=== PATIENT | male | born 1935 | race Caucasian/White ===

== ENCOUNTER 2023-03-14 09:33 | Inpatient (IN) | payer MEDICARE, BC, SELFPAY ==
[2023-03-14] VITALS (40 sets, daily range): BP systolic 108–159; BP diastolic 69–101; PULSE 76–96; RESP 14–24; TEMP 36–37.4; O2SAT 92–100; BMI 24.6
--- NOTE | 2023-03-14 | DI.RAD_ITS ---
Exam(s) XR ABDOMEN FLAT PLATE EXAM: 2D digital imaging was performed. CLINICAL HISTORY: NG tube. COMPARISON: CT CT ABDOMEN PELVIS W from 03/14/2023 TECHNIQUE: Supine views of the abdomen performed. Upper abdomen only included on this single portab le view FINDINGS: BOWEL GAS PATTERN: Continued dilatation of multiple loops of small bowel in the upper abdomen. OSSEOUS STRUCTURES: Nor advanced degenerative changes in the spine. OTHER FINDINGS: A nasogastric tube has been inserted. The tip lies above the diaphragm, in lower eso phagus IMPRESSION: 1. Dilated loops of small bowel. 2. NG tube in lower esophagus. DATA REPOSITORY: RADIATION DOSE DELIVERED:
--- NOTE | 2023-03-14 09:43 | ED.GENADUL_ITS ---
Discharge Plan Disposition Patient Disposition: Admit to [facility] Condition: Stable Discharge Details Clinical Impression: Incarcerated hernia, Small bowel obstruction Attending Provider: Violet Jin Primary Care Provider: Unknown,Unknown ED Provider: Jose Luis Louis Medical Decision Making This dictation utilizes [id number] dictation software and may contain unedited grammatical errors. 87 y/o M presents to ED today by EMS with a chief complaint of intermittent abdominal cramping with a known RLQ hernia, nausea and vomiting with PO intake, and constipation for the past 6 days. Onset and characteristics include nearly a week without bowel movement, intermittent abdominal cramping, questions bloody emesis last Wed., denies coffee-ground emesis. Patient has relevant history of many, many years ago had unsuccessful hernia repair surgery to abdominal hernia. Family and social history: states CA history in his brother and sister, doesn't specify type, denies smoking history, lives independently in what he refers to as a caleb. Pertinent exam findings / vital signs include hyperactive bowel sounds in the left lower lung torers, palpable right lower quadrant hernia without peritoneal signs abdomen, mild distention, benign cardiopulmonary status, dry mucosal membranes, vitals stable with hypertension chronic in nature. Differential / pathologies of concern include SBO, incarcerated hernia, obstipation, fecal impaction, gastritis, GI bleeding, dehydration, viral syndrome, gastroenteritis, UNLIKELY SMA/CLAY occlusion. Diagnostic studies of: -CBC, CMP, Lipase, Lactate, UA, CT ABD/Pelvis w Contrast - POCUS ABD performed by EM Attending Dr. Mchugh. Add-on of Type & Screen for surgical procedure. -CBC is unremarkable, CMP shows hemoconcentration with sodium of 146, hypokalemia of 3.1 which is likely lower with his hemoconcentration, mild anion gap at 14.9, mildly elevated BUN and creatinine at 48/1.5, elevation of bilirubin to 2.5 with mild elevation of liver enzymes unsure chronicity, mild hypermagnesemia of 2.6 -Lactate 2.6, likely in the setting of prolonged poor hydration, giving IVF. 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 Interventions of: -1L NS Bolus, 4mg IV Zofran, not in active pain at this time- no analgesics n eeded. -Surgery Consult with Dr. Jin, accepts for admit -NG tube placed ED Course: Patient resting comfortably throughout ED visit, he received IV fluids as well as ondansetron, he did not need any significant analgesics while in the department, tolerated NG tube placement well and is admitted to surgery service for his small bowel obstruction and inguinal hernia. Covid-19 PCR ordered at sundar e of admission. Findings consistent with SBO with strangulated hernia, warranting surgical admission. Disposition of Small Bowel Obstruction. Assessment/Plan: Patient presents with 6 days of constipation and has mildly distended abdomen with a known right lower quadrant hernia with strangulation, patient required no significant analgesia while in the department and was excepted for surgical admission, I counseled the patient on the need for intervention and he agreed with hospital admission. Patient verbalized understanding of the plan and return to ED criteria and engaged in shared decision making. Medical Records Medical records reviewed: Yes I reviewed the patient's medical records. Imaging Data Radiologic Study: Attestation: I personally reviewed and interpreted this imaging study as follows: Imaging: CT Scan My impression: SBO seen with transition point at known hernia, suspect incarceration. Radiologist's impression: EXAM: CT ABDOMEN PELVIS W CLINICAL HISTORY: constipation, N/V TECHNIQUE: Imaging Protocol: Axial computed tomography images with coronal and sagittal reformatted images were created and reviewed CONTRAST MATERIAL: Intravenous: Omnipaque 350 Contrast volume:100 mL Oral: No COMPARISON: No exams were available for comparison FINDINGS: ABDOMEN: Lung Bases: A large portion of the stomach is above the diaphragm and findings are suggestive of a gastric volvulus atelectasis is seen in the lung bases. Liver: Normal density. There are 2 well-circumscribed hypodensities in the liver which are most suggestive of hepatic cysts. No suspicious hepatic lesions are seen. Portal, Superior Mesenteric, and Splenic Veins: Unremarkable. Gallbladder and Biliary Tract: No radiodense calculus or dilation. Pancreas: Normal density, no abnormal calcifications or inflammatory process. Spleen: Normal. Adrenals: No masses seen. Kidneys: Normal size, contour and axis. No radiodense stones or obstructive uropathy. Simple right renal cyst. No follow-up is recommended. Abdominal Aorta: Abdominal portion non-dilated. Atherosclerosis. 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 Bowel: There is diverticulosis of the colon without definite diverticulitis. There is a large right inguinal hernia containing a loop of small bowel. The bowel within the hernia is mildly dilated with thickened rae. The small bowel proximal to the hernia is dilated with air-fluid levels consistent with obstruction. The small bowel distal to the hernia is of normal caliber. No evidence of appendicitis. No pneumatosis. Peritoneal Cavity: No ascites, collection or mesenteric inflammatory response. No free air. Lymph Nodes: Within normal limits. Bones: Within normal limits for the patient's age. Soft Tissues: Large right inguinal hernia containing small bowel and causing a small-bowel obstruction as described above.. PELVIS: Bladder: Symmetric distention, no gross wall thickening. Reproductive Organs: Unremarkable as visualized. Lymph Nodes: Within normal limits. Bones: Within normal limits for the patient's age. IMPRESSION: 1. Large right inguinal hernia containing a loop of small bowel. The small bowel has thickened rae and is dilated. There is a resulting small bowel obstruction proximal to the right inguinal hernia. 2. No free air. 3. Additional findings in the abdomen and pelvis as described above. 4. Findings were discussed with Dr. Lr in at 12:15 p.m. on 03/14/2023. Lab Data Lab results reviewed: Yes I reviewed the patient's lab results. Labs: Laboratory Tests Range/Units 03/14/23 09:35 WBC (4.4-10.8) 10^3/uL 8.28 RBC (4.36-5.78) 10^6/uL 4.78 Hgb (13.5-17.5) g/dL 13.8 Hct (40.0-50.0) % 42.1 MCV (80-95) fL 88 MCH (27.0-33.0) pg 28.9 MCHC (32.0-36.0) % 32.8 RDW (11.8-14.1) % 13.7 Plt Count (130-400) 10^3/uL 306 MPV (8.0-11.0) fL 8.7 Immature Gran % 0.7 Neutrophils % 70.9 Lymphocytes % 11.2 Monocytes % 16.2 Eosinophils % 0.5 Basophils % 0.5 Nucleated RBC % (0.0-0.3) % 0.0 Absolute Neutrophils (1.2-6.7) 10^3/uL 5.87 Absolute Lymphocytes (1.2-3.4) 10^3/uL 0.93 L Absolute Monocytes (0.1-0.8) 10^3/uL 1.34 H Absolute Eosinophils (0.0-0.7) 10^3/uL 0.04 Absolute Basophils (0.0-0.2) 10^3/uL 0.04 VBG Lactate (0.6-1.4) mmol/L 2.5 H* Sodium (136-145) mmol/L 146 H Potassium (3.5-5.1) mmol/L 3.1 L Chloride (98-107) mmol/L 107 Carbon Dioxide (21.0-32.0) mmol/L 24.1 Anion Gap (3-11) mmol/L 14.9 H BUN (7-18) mg/dL 48 H Creatinine (0.70-1.30) mg/dL 1.5 H Est GFR (CKD-EPI 2020) (mL/min/1.73m2) 45.34 Glucose (74-106) mg/dL 175 H Calcium (8.5-10.1) mg/dL 9.4 Magnesium (1.8-2.4) mg/dL 2.6 H Total Bilirubin (0.2-1.0) mg/dL 2.5 H AST (15-37) U/L 73 H ALT (16-63) U/L 68 H Alkaline Phosphatase (46-116) U/L 90 Total Protein (6.4-8.2) g/dL 7.4 Albumin (3.4-5.0) g/dL 3.7 Lipase (16-77) U/L 31 HPI General Date/Time Provider Initiated Documentation: 03/14/23 09:35 . HPI Narrative: 87 year-old male presents to ED today by EMS with a chief complaint of abdominal pain/cramping, known RLQ hernia, nausea/vomiting with PO intake, and lack of bowel movements with onset last Monday, day 6. Quality described as intermittent abdominal cramping- patient is stoic, no radiation to coffee-ground emesis, endorses possible scant bloody emesis last Monday, denies chest pain, shortness of breath, current abdominal pain, dysuria, confusion, endorses dehydration and feeling dry. Severity is described as moderate. Palliating factors include nothing specific attempted. Provoking factors include nothing specific. Events leading up to the incident/Associated Symptoms: Patient lives independently. Patient not anticoagulated. Related Data Home Medications Medication Instructions Recorded Confirmed Unknown [No Known Home Meds] 03/14/23 03/14/23 Allergies Allergy/AdvReac Type Severity Reaction Status Date / Time codeine AdvReac dry heaving Verified 03/14/23 13:39 General Stated Complaint: Nausea/Vomit/Diar ASHTYN: 3 Review of Systems All systems reviewed & are unremarkable except as noted in HPI and below PFSH All Active Problems (Updated 03/14/23 @ 13:43 by Violet Jin MD) Hiatal hernia (Chronic) Small bowel obstruction (Acute) Incarcerated hernia (Acute) Surgical History (Updated 03/14/23 @ 13:38 by Violet Jin MD) History of tooth extraction S/P inguinal hernia repair at 7 years old Social History Smoking/Tobacco Use Status: Never Smoking risk assessment performed?: Yes Alcohol Intake: former Drug use: Never Substance use type: does not use Housing: house Do you feel safe at home: Yes Do you feel safe in your relationship?: Yes Exam Narrative Exam Narrative: GENERAL APPEARANCE: Well-nourished, non-toxic, awake and alert, atraumatic, no acute distress. SKIN: Warm, pink, dry, intact, without rashes/lesions/ulcerations. HEAD: Normocephalic, atraumatic, normal hair distribution for gender/age. EYES: Pupils PERRLA, EOMs intact without nystagmus, normal conjunctiva, no exudates on lids/lashes. ENT: Nares patent, no circumoral cyanosis, no facial swelling NECK: Supple, trachea midline, painless cervical ROM. LUNGS/CHEST: Lungs CTA diffusely, bowel sounds heard in L lower lung torres, non-labored respirations, normal A/P diameter, symmetrical expansion, no chest wall deformity HEART (CV/PV): Regular rate and rhythm without murmur, no peripheral edema, no JVD. ABDOMEN: Hyperactive bowel sounds LUQ, soft, distended, no guarding, palpable RLQ hernia, no peritoneal signs/Rovsing's, negative Martinez's sign. MSK: Normal ROM, no swelling/deformity to bilateral UEs or LEs, moving all extremities without weakness, no cyanosis, spine midline without tenderness, normal curvature. NEURO: Mental Status AAOx4 - alert to person, place, time, events No facial droop, no forehead involvement. Motor: No focal weakness - strength 5/5 in bilateral UEs and LEs, proximal and distal, symmetric. Sensory: sensation intact to light touch globally. Gait normal: patient ambulated without ataxia into ED room. PSYCH: euthymic, cooperative, pleasant, appropriate speech Course Vital Signs Vital signs: Vital Signs Temperature 36.2 C L 03/14/23 09:31 Pulse 95 H 03/14/23 09:31 Respiratory Rate 20 03/14/23 09:31 Blood Pressure 150/92 H 03/14/23 09:31 Pulse Oximetry 92 03/14/23 09:31 Temperature 36.9 C 03/14/23 09:35 Temperature Source Tympanic 03/14/23 09:35 Pulse 95 H 03/14/23 09:31 Respiratory Rate 20 03/14/23 09:31 Respiratory Effort Short of Breath 03/14/23 09:34 Blood Pressure 150/92 H 03/14/23 09:31 Blood Pressure Position Supine 03/14/23 09:31 Pulse Oximetry 100 03/14/23 09:35 Oxygen Delivery Method Room Air 03/14/23 09:35 Oxygen Flow Rate 0 03/14/23 09:31
--- NOTE | 2023-03-14 09:45 | DI.CT_ITS ---
Exam(s) CT ABDOMEN PELVIS W EXAM: CT ABDOMEN PELVIS W CLINICAL HISTORY: constipation, N/V TECHNIQUE: Imaging Protocol: Axial computed tomography images with coronal and sagittal reformatted images were created and reviewed CONTRAST MATERIAL: Intravenous: Omnipaque 350 Contrast volume:100 mL Oral: No COMPARISON: No exams were available for comparison FINDINGS: ABDOMEN: Lung Bases: A large portion of the stomach is above the diaphragm and findings are suggestive of a ga stric volvulus atelectasis is seen in the lung bases. Liver: Normal density. There are 2 well-circumscribed hypodensities in the liver which are most sugge stive of hepatic cysts. No suspicious hepatic lesions are seen. Portal, Superior Mesenteric, and Splenic Veins: Unremarkable. Gallbladder and Biliary Tract: No radiodense calculus or dilation. Pancreas: Normal density, no abnormal calcifications or inflammatory process. Spleen: Normal. Adrenals: No masses seen. Kidneys: Normal size, contour and axis. No radiodense stones or obstructive uropathy. Simple right re nal cyst. No follow-up is recommended. Abdominal Aorta: Abdominal portion non-dilated. Atherosclerosis. There is significant thrombosis see n in both internal iliac arteries resulting in near complete occlusion. Bowel: There is diverticulosis of the colon without definite diverticulitis. There is a large right inguinal hernia containing a loop of small bowel. The bowel within the hernia is mildly dilated with thickened rae. The small bowel proximal to the hernia is dilated with air-fluid levels consistent with obstruction. The small bowel distal to the hernia is of normal caliber. No evidence of append icitis. No pneumatosis. Peritoneal Cavity: No ascites, collection or mesenteric inflammatory response. No free air. Lymph Nodes: Within normal limits. Bones: Within normal limits for the patient's age. Soft Tissues: Large right inguinal hernia containing small bowel and causing a small-bowel obstructio n as described above.. PELVIS: Bladder: Symmetric distention, no gross wall thickening. Reproductive Organs: Unremarkable as visualized. Lymph Nodes: Within normal limits. Bones: Within normal limits for the patient's age. IMPRESSION: 1. Large right inguinal hernia containing a loop of small bowel. The small bowel has thickened rae and is dilated. There is a resulting small bowel obstruction proximal to the right inguinal hernia. 2. No free air. 3. Additional findings in the abdomen and pelvis as described above. 4. Findings were discussed with Dr. Lr in at 12:15 p.m. on 03/14/2023. RADIATION DOSE DELIVERED: Total DLP DATA REPOSITORY: All CT scans at this facility are submitted to the National Radiology Data Registry (NRDR) Dose Index Registry (DIR) with the [employer] (ACR). RADIATION OPTIMIZATION: All CT scans at this facility use at least one of these dose optimization te chniques: automated exposure control; mA and/or kV adjustment per patient size (includes targeted exa ms where dose is matched to clinical indication); or iterative reconstruction.
--- NOTE | 2023-03-14 09:56 | ED.PROG_ITS ---
Date of service: 03/14/23 Time of Service: 09:56 Medical Decision Making This is an overall very well-appearing normothermic and not tachycardic 87-year-old male with remote right inguinal hernia repair now with 1 week of nausea vomiting constipation and intermittent obstipation with limited bedside ultrasound consistent with small bowel obstruction for which patient will undergo CT abdomen pelvis. Will obtain lactate to assess for incarcerated hernia. Will provide ondansetron for nausea. Patient was seen primarily by the advanced practitioner. Please see his separate note for complete details. 2:[address] scan confirmed ultrasound. Patient was hospitalized on the general surgery service. Dr. Junior Mchugh MD Discharge Plan Disposition Patient Disposition: Admit to [facility] Condition: Stable Discharge Details Clinical Impression: Incarcerated hernia, Small bowel obstruction Attending Provider: Violet Jin Primary Care Provider: Unknown,Unknown ED Provider: Jose Luis Louis Discharge Data Discharge Date/Time-TO BE ENTERED AT DEPARTURE: 03/14/23 14:13 POCUS Exam (ED) Limited Appendix Exam DATE OF EXAM: 03/14/23 TIME OF EXAM: 09:57 PROVIDER THAT PERFORMED THE STUDY: Junior Mchugh IS THIS A REPEAT EXAM DURING THIS ENCOUNTER: No REASON FOR EXAM: Nausea VISUALIZED STRUCTURES: Other structure: Dilated loops of small bowel PERTINENT FINDINGS/IMPRESSION: other impression: Dilated loops of small bowel consistent with SBO INCIDENTAL FINDINGS:: Dilated loops of small bowel consistent with SBO Exam complete
[2023-03-14] MEDS: Normal Saline 1,000 ML 1000 ML IV (10:02)
[2023-03-14] MEDS: Ondansetron 4 MG/2 ML VIAL IVP (10:02)
[2023-03-14 10:03] LABS: Abs Immature Grans 0.06 10^3/uL (0.0-0.06); Absolute Basophil Count 0.04 10^3/uL (0.0-0.2); Absolute Eosinophil Count 0.04 10^3/uL (0.0-0.7); Absolute Lymphocyte Count 0.93 10^3/uL (1.2-3.4); Absolute Monocyte Count 1.34 10^3/uL (0.1-0.8); Absolute Neutrophil Count 5.87 10^3/uL (1.2-6.7); Basophils % 0.5; Eosinophils % 0.5; HCT 42.1 % (40.0-50.0); HGB 13.8 g/dL (13.5-17.5); Immature Grans % 0.7; Lymphocytes % 11.2; MCH 28.9 pg (27.0-33.0); MCHC 32.8 % (32.0-36.0); MCV 88 fL (80-95); MPV 8.7 fL (8.0-11.0); Monocytes % 16.2; Neutrophils % 70.9; Platelet Count 306 10^3/uL (130-400); RBC 4.78 10^6/uL (4.36-5.78); RDW 13.7 % (11.8-14.1); WBC 8.28 10^3/uL (4.4-10.8)
[2023-03-14 10:05] LABS: Lactate 2.5 mmol/L (0.6-1.4)
[2023-03-14 10:18] LABS: Lipase 31 U/L (16-77)
[2023-03-14 10:21] LABS: ALT 68 U/L (16-63); AST 73 U/L (15-37); Albumin 3.7 g/dL (3.4-5.0); Alkaline Phosphatase 90 U/L (46-116); Anion Gap 14.9 mmol/L (3-11); BUN 48 mg/dL (7-18); Bilirubin, Total 2.5 mg/dL (0.2-1.0); CO2 24.1 mmol/L (21.0-32.0); CREATININE 1.5 mg/dL (0.70-1.30); Calcium 9.4 mg/dL (8.5-10.1); Chloride 107 mmol/L (98-107); Estimated GFR 45.34 (mL/min/1.73m2); Glucose 175 mg/dL (74-106); Magnesium 2.6 mg/dL (1.8-2.4); Potassium 3.1 mmol/L (3.5-5.1); Sodium 146 mmol/L (136-145); Total Protein 7.4 g/dL (6.4-8.2)
[2023-03-14] MEDS: Normal Saline - Diluent 50 ML VIAL IJ (11:34)
[2023-03-14] MEDS: Omnipaque 350 MG/ML 100 ML BTL IJ (11:37)
--- NOTE | 2023-03-14 13:02 | ANES.PREOP_ITS ---
General Info Date of Service Date Performed: 03/14/23 Height: 6 ft 2 in Weight: 87 kg Body Mass Index (BMI): 24.6 Surgical Procedure: Operation Date: 03/14/23 14:05 Proposed Procedure Side Surgeon p Herniorrhaphy Inguinal Violet Jin MD s Exploratory Laparotomy Violet Jin MD Meds Allergies and Home Medications Allergies Allergy/AdvReac Type Severity Reaction Status Date / Time codeine AdvReac dry heaving Verified 03/14/23 13:39 Home Medication Medication Instructions Recorded Unknown [No Known Home Meds] 03/14/23 Current Visit Medications: Current Medications Generic Name Dose Route Start Last Admin Trade Name Freq PRN Reason Stop Dose Admin IV Miscellaneous Supplies 1 each 03/14/23 12:45 Iv Access-Emergency Dept IV DIRECTED ABDIAS Iohexol 100 ml 03/14/23 11:45 03/14/23 11:37 Omnipaque 350 Mg/Ml 100 Ml Btl IJ 04/13/23 23:59 100 ml DIRECTED ABDIAS Administration Sodium Chloride 50 ml 03/14/23 11:45 03/14/23 11:34 Normal Saline - Diluent 50 Ml Vial IJ 50 ml .FOR DI USE ABDIAS Administration Sodium Chloride 0 ml 03/14/23 12:43 Normal Saline Flush 10 Ml Syr IVP PRN PRN PFSH Active Problems Active Problems: Problem Status Onset Code Small bowel obstruction K56.609 Incarcerated hernia K46.0 Surgical History Surgical History (Updated 03/14/23 @ 13:38 by Violet Jin MD) History of tooth extraction S/P inguinal hernia repair at 7 years old Tobacco Smoking/Tobacco Use Status: Never Alcohol Alcohol Intake: former Substance Use Substance use: Never Substance use type: does not use Vital Signs and Lab Results Vital Signs Most Recent Vital Signs in EMR: Most Recent Vital Signs Temp Pulse Resp BP Pulse Ox 36.9 C 95 H 16 150/92 H 100 03/14/23 09:35 03/14/23 09:31 03/14/23 11:50 03/14/23 09:31 03/14/23 09:35 Lab Results 03/14/23 09:35 03/14/23 09:35 Blood Type / Crossmatch: 2 Patient ABO/Rh Pending 03/14/23 Complete Blood Count: 2 White Blood Count 8.28 10^3/uL (4.4-10.8) 03/14/23 09:35 Red Blood Count 4.78 10^6/uL (4.36-5.78) 03/14/23 09:35 Hemoglobin 13.8 g/dL (13.5-17.5) 03/14/23 09:35 Hematocrit 42.1 % (40.0-50.0) 03/14/23 09:35 Platelet Count 306 10^3/uL (130-400) 03/14/23 09:35 Venous Blood Lactate 2.5 mmol/L (0.6-1.4) H* 03/14/23 09:35 Complete Metabolic Panel: 2 Sodium 146 mmol/L (136-145) H 03/14/23 09:35 Potassium 3.1 mmol/L (3.5-5.1) L 03/14/23 09:35 Chloride 107 mmol/L (98-107) 03/14/23 09:35 Carbon Dioxide 24.1 mmol/L (21.0-32.0) 03/14/23 09:35 BUN 48 mg/dL (7-18) H 03/14/23 09:35 Creatinine 1.5 mg/dL (0.70-1.30) H 03/14/23 09:35 Est GFR (CKD-EPI 2020) 45.34 (mL/min/1.73m2) 03/14/23 09:35 Magnesium 2.6 mg/dL (1.8-2.4) H 03/14/23 09:35 Calcium 9.4 mg/dL (8.5-10.1) 03/14/23 09:35 Albumin 3.7 g/dL (3.4-5.0) 03/14/23 09:35 Glucose 175 mg/dL (74-106) H 03/14/23 09:35 Liver Function Panel: 2 Alanine Aminotransferase (ALT/SGPT) 68 U/L (16-63) H 03/14/23 0 9:35 Aspartate Amino Transf (AST/SGOT) 73 U/L (15-37) H 03/14/23 09: 35 Coagulation Panel: 2 No Data to Display Cardiac Panel: 2 No Data to Display Arterial Blood Gas: 2 No Data to Display Venous Blood Gas: 2 No Data to Display Pancreas Panel: 2 Lipase 31 U/L (16-77) 03/14/23 09:35 Thyroid Panel: 2 No Data to Display Infectious Disease: 2 Coronavirus (COVID-19)(PCR) Pending 03/14/23 13:36 Coronavirus 2019 Source Pending 03/14/23 13:36 Blood Cultures: 2 No Data to Display Toxicology Panel: 2 No Data to Display Anesthesia Assessment and Plan Anesthesia History Personal History: No History of Anesthesia Complications Family History: No Family History of Anesthesia Complications Exercise Tolerance Exercise Tolerance: Metabolic Equivalents>4 Pertinent Negatives Pertinent Negatives: No Symptoms of GERD, No Major Cardiovascular Symptoms or Complaints and No Major Pulmonary Symptoms or Complaints Cardiac & Pulmonary Exam Cardiac Exam: Normal S1/S2 Heart Sounds Pulmonary Exam: Clear Bilateral Breath Sounds Implantable Cardiac Device Does patient have a Pacemaker or an ICD?: No Airway Exam Known Difficult Airway: No Mallampati Class: 3 Mouth Opening: Normal (> 3cm) Thyromental Distance: Greater than 3 cm Facial Hair: Full Meng Neck Range of Motion: Limited ROM Neck Circumference: Normal Teeth Condition: Edentulous ASA Classification ASA Score: ASA 3 Emergency Case?: Yes NPO Status NPO Status: NPO Clears >2 hours, Solids >8 hours Anesthesia Plan Resuscitation Status: Full Code Anesthesia Technique: General Anesthesia Airway Planned: Endotracheal Tube Pain Management: Surgeon and patient request nerve block Monitors Used: Standard Monitors, Arterial Line (Potential) and SedLine Preoperative Comments:: Patient reports he last ate at yesterday, but has been vomiting intermittently. Patient has one PIV in place and understands he may need additional lines and arterial line. Plan for TAP block and/or epidural as needed.
--- NOTE | 2023-03-14 13:30 | RT.EKG_ITS ---
APPROVED REPORT Exam: Resting ECG Reason for Exam: weakness Patient Location: E HR:85 bpm ECG Measurements Heart Rate 85 AXIS SC 162 P 36 QRSd 161 QRS -31 QT 440 T 61 QTc 524 Conclusion Sinus rhythm...normal P axis, V-rate 60- 99 Right bundle branch block...QRSd>120, terminal axis(90,270) Normal sinus rhythm at a rate of 85 with right bundle branch block and left axis deviation?bifas cicular block. Lateral ST segment depressions V4 through V6. No ST segment elevations. No T wave i nversions beyond V1 and V2. No prior for comparison. No acute injury pattern.
--- NOTE | 2023-03-14 13:34 | HPE_ITS ---
Assessment and Plan Assessment and plan (1) Incarcerated hernia: Status: Acute Assessment and plan: Mr. Schumacher is a pleasant 87-year-old gentleman who lives alone and has not gone to the doctor in a long time. He does not take any medicines. He comes into the emergency department with 6 days of not having a bowel movement. He started having nausea vomiting over the weekend. He looks dehydrated. His lips are dry. His labs showed an increased lactate which I would expect with his dehydration. Will hydrate him and recheck it. CT and exam shows a incarcerated right inguinal hernia. Discussed the findings with the patient. We reviewed the pathophysiology of an incarcerated hernia. Reviewed surgery which needs to be done emergent. I explained that I will attempt to just fix the hernia through a small right inguinal incision. If the intestine is necrotic then I will need to do an exploratory laparotomy to remove that part of the small intestine. I reviewed with him the potential for an ileostomy. I reviewed the risks, benefits and complications. After our conversation the patient did seem to have a good understanding of the possible complications of the proposed surgery and wished to proceed. Risks, benefits and complications have been reviewed. Complications include but are not limited to bleeding, infection, injury to vas, vessels and nerves, injury to bowel, recurrence (3-5%), chronic pain and adverse reaction to medications. Questions were entertained and answered to their satisfaction and they wished to proceed. I also discussed with the patient that he has a large hiatal hernia and that it might be twisted. I recommended an NG tube decompression. We discussed this and he agreed. I also discussed with the patient his CODE STATUS. Patient would like to continue to be a full code. He does not want to be on a ventilator for long period time. He does not have a designated advocate to help with decision- making if he was unable to make those decisions himself. He does not want his information to be given to anyone. We will proceed with repair of right incarcerated inguinal hernia with possible exploratory laparotomy, possible small bowel resection with anastomosis possible ileostomy. Patient will be admitted to intensive care unit after the surgery. He will stay n.p.o. until bowel function returns. DVT prophylaxis: We will start with sequential compression devices here in the OR. We will start on Lovenox tomorrow. GI prophylaxis: Will start on IV Protonix tonight Nutrition: Patient will be n.p.o. until he has some bowel function. We will continue with hydration. If bowel function does not return within a few days will consider TPN. Activity: We will get the patient out of bed and ambulating as soon as possible. Pain control: Anesthesia we will do a tap block for me in the OR. We will give Toradol and IV Tylenol. We will also order some low doses of morphine. Discharge planning: Patient lives alone and has no support system so we will need to figure out if we can get him some assistance once he is ready for discharge. 40 minutes were spent in [id number] conversation with the patient. 20 minutes spent with dictation and review of chart. (2) Small bowel obstruction: Status: Acute (3) Hiatal hernia: Status: Chronic History of Present Illness Consults Consult date: 03/14/23 Requesting physician: Jose Luis Dougherty arrative: Mr. Schumacher is a 87 year old gentleman who comes in today for nausea, vomiting and constipation. He states his last normal bowel movement was last Monday. He has had some blood per rectum but it is hard to understand from him when exactly that was. He lives alone and has not seen a physician in 6 years or more. He is on no medications. He does tell me he had an attempt at a right inguinal hernia repair when he was 7 years old. He tells me that he moves around a lot even under general anesthesia. He had labs drawn in the emergency department which were unremarkable. His lactate was elevated but the patient has also been vomiting for at least a few days. He had a CT scan done of the abdomen and pelvis. I was able to review the images. The CT scan shows a large right inguinal hernia with thickened intestine in it. There is a transition point between the small intestine in the abdomen and what is in his hernia sac. There is also a large hiatal hernia with question of volvulus. He denies chest pain, shortness of breath or palpitations. He does say diabetes runs in the family but he has never had that diagnosis. He does state that he sleeps a lot over the last few months. He will go to bed at around 8 or 9:00 wake up at midnight have a couple coffee and then go back to bed are until around noon. He will then get up and have lunch and then take another nap until dinner. He has no relatives that he is in contact with. Review of Systems Constitutional Constitutional: Reports fatigue, Denies fever(s), Denies headache(s) and Denies weight loss Eyes Eyes: Denies change in vision ENT Ears, Nose, Mouth, and Throat: Denies dysphagia and Denies headache(s) Cardiovascular Cardiovascular: Denies chest pain, Denies chest pain at rest, Denies irregular heart rhythm, Denies palpitations, Denies dyspnea and Denies dyspnea on exertion Respiratory Respiratory: Denies cough, Denies dyspnea and Denies dyspnea on exertion Gastrointestinal Gastrointestinal: Reports as per HPI, Denies dysphagia, Denies dyspepsia and Denies heartburn Genitourinary Genitourinary: Reports system reviewed and no additional complaints, except as documented Musculoskeletal Musculoskeletal: Reports system reviewed and no additional complaints, except as documented Integumentary/Breasts Skin/Breast: Reports system reviewed and no additional complaints, except as documented Neurologic Neurologic: Reports system reviewed and no additional complaints, except as documented and Denies headache(s) Endocrine Endocrine: Reports system reviewed and no additional complaints, except as documented, Reports fatigue and Denies palpitations Hematologic/Lymphatic Hematologic/Lymphatic: Reports system reviewed and no additional complaints, except as documented PFSH All Active Problems (Updated 03/14/23 @ 13:43 by Violet Jin MD) Hiatal hernia (Chronic) Small bowel obstruction (Acute) Incarcerated hernia (Acute) Surgical History (Updated 03/14/23 @ 13:38 by Violet Jin MD) History of tooth extraction S/P inguinal hernia repair at 7 years old Social History Smoking/Tobacco Use Status: Never Smoking risk assessment performed?: Yes Alcohol Intake: former Drug use: Never Substance use type: does not use Housing: house Do you feel safe at home: Yes Do you feel safe in your relationship?: Yes Meds Allergies and Home Medications Allergies Allergy/AdvReac Type Severity Reaction Status Date / Time codeine AdvReac dry heaving Verified 03/14/23 13:39 Home Medications Medication Instructions Recorded Confirmed Type Unknown [No Known Home Meds] 03/14/23 03/14/23 History Exam Const General: cooperative, comfortable and no acute distress Nutritional Appearance: thin Orientation: alert and oriented x3 HENMT Head: normocephalic and atraumatic Resp Effort & Inspection: normal respiratory effort Auscultation: clear to auscultation bilaterally Cardio Rate: regular rate Rhythm: regular rhythm Heart Sounds: no gallops, no murmurs and no rubs GI Inspection: visible herniation Palpation: soft, no hepatosplenomegaly, hernia (large right inguinal hernia) and tender (over the hernia) Auscultation: high-pitched sounds Rectal Exam: deferred Results Imaging Abdomen CT scan report/results: report reviewed and image reviewed CT scan - pelvis: report reviewed and image reviewed Labs 03/14/23 09:35 03/14/23 09:35 Labs: Laboratory Results - last 24 hr 03/14/23 09:35 WBC 8.28 RBC 4.78 Hgb 13.8 Hct 42.1 MCV 88 MCH 28.9 MCHC 32.8 RDW 13.7 Plt Count 306 MPV 8.7 Immature Gran % 0.7 Neutrophils % 70.9 Lymphocytes % 11.2 Monocytes % 16.2 Eosinophils % 0.5 Basophils % 0.5 Nucleated RBC % 0.0 Absolute Neutrophils 5.87 Absolute Lymphocytes 0.93 L Absolute Monocytes 1.34 H Absolute Eosinophils 0.04 Absolute Basophils 0.04 VBG Lactate 2.5 H* Sodium 146 H Potassium 3.1 L Chloride 107 Carbon Dioxide 24.1 Anion Gap 14.9 H BUN 48 H Creatinine 1.5 H Est GFR (CKD-EPI 2020) 45.34 Glucose 175 H Calcium 9.4 Magnesium 2.6 H Total Bilirubin 2.5 H AST 73 H ALT 68 H Alkaline Phosphatase 90 Total Protein 7.4 Albumin 3.7 Lipase 31 Last Vital Signs Temp 98.5 F 03/14/23 09:35 Pulse 95 H 03/14/23 09:31 Resp 16 03/14/23 11:50 BP 150/92 H 03/14/23 09:31 Pulse Ox 100 03/14/23 09:35
[2023-03-14 13:47] LABS: Source Nasal/Nares
[2023-03-14] MEDS: Lactated Ringers 1,000 ML 30 ML IV (14:03)
[2023-03-14 14:19] LABS: COVID-19 PCR Negative (Negative)
[2023-03-14] MEDS: AMPICILLIN/SULBACTAM 3 GM in Normal Saline 100 ML IVPB (14:37)
[2023-03-14] MEDS: Bupivacaine 0.25% Pres-Free 30 ML VIAL (14:57)
[2023-03-14 15:07] LABS: Lactate 1.2 mmol/L (0.6-1.4)
[2023-03-14] MEDS: Bupivacaine LIPOSOME/PF 133 MG/10 ML VIAL IJ (15:34)
--- NOTE | 2023-03-14 16:15 | ROE_ITS ---
Date of service: 03/14/23 Time of Service: 16:15 Operative Note Operative Note DATE OF PROCEDURE: 03/14/23 PRE-OP DIAGNOSIS: incarcerated right inguinal hernia POST-OP DIAGNOSIS: same PROCEDURE: repair of incarcerated right inguinal hernia SURGEON: Violet Jin GLASS INSTALLER TECHNICIAN: Sangeeta Zhu ANESTHESIA TYPE: Local By Surgeon and General LMA/ETT Refer to Anesthesia Record ESTIMATED BLOOD LOSS: 25 PATHOLOGY: none sent COMPLICATIONS: None Patient was transported to: PACU Patient's condition: stable Implants: Ventrio ST hernia Patch: REF- [id number] LOT- [id number] 2024-01-10 Indications: Mr. Schumacher is a pleasant 87-year-old gentleman who I saw in the emergency department for small bowel Sun secondary to a large incarcerated right inguinal hernia. Patient also has a large hiatal hernia which on CT scan there was a question whether there was a volvulus. NG tube was placed in the emergency department to decompress his stomach. I do not believe that his obstruction is secondary to gastric outlet obstruction but more because of his intestine being incarcerated. I discussed the procedure with him in detail as well as the possible risks, benefits and complications. He had an opportunity to ask questions about the possible complications and wished to proceed. Findings: Large 10 x 12 cm hernia sac. There was omentum, sigmoid colon and small intestine within the hernia sac. The large and small intestine were viable. The omentum was scarred and I had to amputate most of it in order to be able to reduce the intestine and rest of the omentum. We will infection of the umbilicus scrotum and inguinal creases. Procedure Description: After informed consent was obtained the patient was taken to the operating room and placed in a supine position. Monitors and SCDs were applied and a timeout was done. The patient's name, date of , procedure type, procedure site, allergies to medications, preoperative antibiotic, and DVT prophylaxis were all reviewed. Fire risk was assessed. Once anesthesia was done the abdomen was prepped and draped in a sterile surgical fashion. 0.5% Marcaine mixed with exparel was injected into the dermis in the right lower quadrant. An incision was made with a 10 blade in the right lower quadrant. Dissection was done with cautery through the subcutaneous tissues and Theodore's fascia down to the external oblique fascia. The external ring was not easily identified secondary to previous hernia repair at age 7 and from the large hernia sac. I slowly opened the he external oblique fascia sharply, being careful not to injure the underlying intestine. The cut fascia was grasped with hemostats. The hernia sac contents were then gently manipula delfina from the scrotum into the inguinal canal. The sac was opened and the intestine was inspected. The small and large intestine were pink. Almost the entire omentum was also found within the hernia sac. I was unable to reduce the intestine and the omentum. Most of the omentum was removed using a ligasure. The sigmoid colon and small intestine was the easily reduced back into the peritoneal cavity. The cord structures were identified and a [place] drain was placed around them. The cremasteric muscle was dissected away from the cord structures using both cautery and blunt dissection. A flat piece of mesh was then attached to the lacunar ligament using a 2-0 Prolene double armed suture. The mesh was secured laterally and medially with a 2-0 Prolene, with a running suture. The tails of the mesh were wrapped around the cord structures effectively cinching down the internal ring. Once the mesh was secured the tissues were irrigated with some normal saline. No bleeding was identified. The external oblique fascia was reapproximated using 2-0 Vicryl running suture. The Theodore's fascia was reapproximated using interrupted 3-0 Vicryl. The dermis was reapproximated with a running 4-0 Vicryl. The skin was cleaned and dried and skin affix was applied. The patient was woken up and taken back to recovery in stable condition. There were no immediate complications. Sponge, instrument and needle counts were correct at the end of the case x2.
--- NOTE | 2023-03-14 16:43 | W.ANESPOSTOP ---
Postoperative Evaluation Date, Time and Location Date Performed: 03/14/23 Time Performed: 16:43 Patient Location: PACU Vital Signs Most Recent Imported Vital Signs: Most Recent Vital Signs Temp Pulse Resp BP Pulse Ox 36.6 C 78 19 148/73 H 98 03/14/23 16:16 03/14/23 16:16 03/14/23 16:16 03/14/23 16:16 03/14/23 16:16 Pain Score Most Recent Pain Score: Most Recent Pain Score Pain Level 0 03/14/23 16:16 Assessment Mental Status: Awake (Alert & Oriented to Patient Baseline) Airway and Respiratory Function: Patent airway with normal (patient baseline) respiratory exam Cardiovascular Function: Hemodynamically Stable Hydration Status: Adequately Hydrated Nausea & Vomiting: No Nausea or Vomiting Pain: Pain is tolerable per patient Peripheral Nerve Block: Patient did not receive a nerve block
--- NOTE | 2023-03-14 16:45 | DI.RAD_ITS ---
Exam(s) XR PORTABLE CHEST AP EXAM: XR PORTABLE CHEST AP CLINICAL HISTORY: NG tube TECHNIQUE: 2D digital imaging was performed. COMPARISON: CT CT ABDOMEN PELVIS W from 03/14/2023 CR XR ABDOMEN FLAT PLATE from 03/14/2023 FINDINGS: The exam is limited by under penetration at the lung bases and poor pulmonary inflation. LUNGS: Grossly clear where visualized. No pleural abnormality seen. HEART: Normal size. AORTA: Ectatic BONES: Spine mostly obscured. Degenerative changes of both shoulders. Soft tissues: Unremarkable. A nasogastric tube has been inserted. The tip projects in the lower esophagus. IMPRESSION: Tip of nasogastric tube projects in lower esophagus. DATA REPOSITORY: RADIATION DOSE DELIVERED:
[2023-03-14] MEDS: Pantoprazole 40 MG VIAL IVP (18:25)
[2023-03-14] MEDS: ACETAMINOPHEN 1,000 MG/100 ML BTL 400 MG IVPB (18:47)
[2023-03-14 21:13] LABS: BUN 41 mg/dL (7-18); CREATININE 1.3 mg/dL (0.70-1.30); Calcium 8.4 mg/dL (8.5-10.1); Chloride 113 mmol/L (98-107); Estimated GFR 53.84 (mL/min/1.73m2); Glucose 131 mg/dL (74-106); Sodium 151 mmol/L (136-145)
[2023-03-14 21:25] LABS: Potassium 2.9 mmol/L (3.5-5.1)
[2023-03-14] MEDS: POTASSIUM CHLORIDE 20 MEQ/100 ML BAG 50 MEQ IVPB (22:14)
[2023-03-14] MEDS: Lactated Ringers 1,000 ML 80 ML IV (23:24)
[2023-03-15] MEDS: POTASSIUM CHLORIDE 20 MEQ/100 ML BAG 50 MEQ IVPB ×3 (00:25→16:10)
[2023-03-15] MEDS: ACETAMINOPHEN 1,000 MG/100 ML BTL 400 MG IVPB ×3 (02:05→17:49)
[2023-03-15 07:08] LABS: Anion Gap 13.6 mmol/L (3-11); BUN 32 mg/dL (7-18); CO2 22.4 mmol/L (21.0-32.0); CREATININE 1.4 mg/dL (0.70-1.30); Calcium 8.6 mg/dL (8.5-10.1); Chloride 113 mmol/L (98-107); Estimated GFR 49.25 (mL/min/1.73m2); Glucose 151 mg/dL (74-106); Sodium 149 mmol/L (136-145)
[2023-03-15 07:10] VITALS: BP 134/76; PULSE 92; RESP 16; TEMP 37.6; O2SAT 93
[2023-03-15 07:14] LABS: Potassium 2.7 mmol/L (3.5-5.1)
--- NOTE | 2023-03-15 07:24 | W.PM.PROGNOT ---
Date of Service Date of service: 03/15/23 Time of Service: 07:24 Assessment and Plan Assessment and plan (1) Incarcerated hernia: Status: Acute Assessment and plan: POD #1 s/p repair of incarcerated right inguinal hernia Pain is currently well controlled. NG tube in place. Ice chips are okay. Encouraged activity OOB, ambulation and sitting in the chair. Awaiting bowel function to return. P// Increase activity and ensure continued pain control. (2) Small bowel obstruction: Status: Acute (3) Hiatal hernia: Status: Chronic Subjective Subjective Interval history since last seen: Arrive with patient resting comfortably in bed. He states that he is not having any pain this morning. He expresses that he is very bored sitting here. He denies any nausea or vomiting. He states that he is independent at home when he uses his 4WW. Exam Const General: cooperative, healthy appearing and comfortable Orientation: alert and oriented x3 Resp Effort & Inspection: normal respiratory effort, no audible wheezes and no cough GI Inspection: normal to inspection and non-distended Palpation: soft, no guarding and tender (right inguinal region ) Objective Last Vital Signs Temp 37.6 C H 03/15/23 07:10 Pulse 92 H 03/15/23 07:10 Resp 16 03/15/23 07:10 BP 134/76 03/15/23 07:10 Pulse Ox 93 03/15/23 07:10 Laboratory Results - last 24 hr 03/14/23 03/14/23 03/14/23 09:35 13:40 13:45 WBC 8.28 RBC 4.78 Hgb 13.8 Hct 42.1 MCV 88 MCH 28.9 MCHC 32.8 RDW 13.7 Plt Count 306 MPV 8.7 Immature Gran % 0.7 Neutrophils % 70.9 Lymphocytes % 11.2 Monocytes % 16.2 Eosinophils % 0.5 Basophils % 0.5 Nucleated RBC % 0.0 Absolute Neutrophils 5.87 Absolute Lymphocytes 0.93 L Absolute Monocytes 1.34 H Absolute Eosinophils 0.04 Absolute Basophils 0.04 VBG Lactate 2.5 H* Sodium 146 H Potassium 3.1 L Chloride 107 Carbon Dioxide 24.1 Anion Gap 14.9 H BUN 48 H Creatinine 1.5 H Est GFR (CKD-EPI 2020) 45.34 Glucose 175 H Calcium 9.4 Magnesium 2.6 H Total Bilirubin 2.5 H AST 73 H ALT 68 H Alkaline Phosphatase 90 Total Protein 7.4 Albumin 3.7 Lipase 31 COVID-19 Source Nasal/Nares SARS-CoV-2 (PCR) Negative Patient ABO/Rh A Positive Antibody Screen NEGATIVE 03/14/23 03/14/23 03/15/23 15:04 20:50 06:25 WBC RBC Hgb Hct MCV MCH MCHC RDW Plt Count MPV Immature Gran % Neutrophils % Lymphocytes % Monocytes % Eosinophils % Basophils % Nucleated RBC % Absolute Neutrophils Absolute Lymphocytes Absolute Monocytes Absolute Eosinophils Absolute Basophils VBG Lactate 1.2 Sodium 151 H 149 H Potassium 2.9 L 2.7 L* Chloride 113 H 113 H Carbon Dioxide 22.0 22.4 Anion Gap 16.0 H 13.6 H BUN 41 H 32 H Creatinine 1.3 1.4 H Est GFR (CKD-EPI 2020) 53.84 49.25 Glucose 131 H 151 H Calcium 8.4 L 8.6 Magnesium Total Bilirubin AST ALT Alkaline Phosphatase Total Protein Albumin Lipase COVID-19 Source SARS-CoV-2 (PCR) Patient ABO/Rh Antibody Screen Time Spent with Patient Time Spent with Patient: <25 minutes Time was spent: preparing to see the patient(eg.review tests) and counseling the patient
[2023-03-15] MEDS: Lactated Ringers 1,000 ML 80 ML IV (09:56)
[2023-03-15] MEDS: Diclofenac 1% Gel 100 GM TUBE TP ×2 (14:16→17:50)
[2023-03-15 15:10] VITALS: BP 117/57; PULSE 73; RESP 16; TEMP 36.9; O2SAT 96
[2023-03-15] MEDS: Enoxaparin 40 MG/0.4 ML SYR SC (16:11)
--- NOTE | 2023-03-15 17:12 | INITIAL_ITS ---
Date of service: 03/15/23 Time of Service: 17:12 Care Management Initial Assmt Initial Assessment REASON FOR HOSPITALIZATION:: Small Bowel Obstruction, incarcerated hernia PREVIOUS FUNCTIONAL STATUS/SOCIAL/FAMILY SUPPORTS:: Lauren lives in [facility]. He has supportive neighbors and friends who check on him consistently. He reports that he is very independent at baseline, is able to care for himself and still drives. CURRENT FUNCTIONAL STATUS:: Lauren was sitting up on the edge of the bed when CM met with him. He was pleasant and very talkative. Dr. Moore was present in the room for much of the conversation, and he removed his NG tube, and stated that he would transition to clear liquids tonight, and his diet will be advanced as tolerated. stated that if he continues to improve he may be able to go home in 24-48H. CM will continue to follow. ADVANCE DIRECTIVES:: Not on file at [facility]; CM will offer forms. Has patient been provided with info about the portal/API?: Yes Did the patient sign up for the portal?: No CODE STATUS:: Full Code INSURANCE COVERAGE / FINANCIAL ISSUES:: MCR. BC/BS. CURRENT HOME/COMMUNITY SERVICES/EQUIPMENT:: None. PRIMARY CARE PHYSICIAN:: unknown POTENTIAL DISCHARGE NEEDS:: Coordinate hospital discharge follow up appointment PATIENT/FAMILY EDUCATION NEEDS:: Review discharge instructions and limitations, discussion of self care needs including ask me three. ANTICIPATED BARRIERS TO DISCHARGE:: None TRANSPORTATION:: Via private vehicle by friend vs RCT PLAN:: Anticipate Lauren will return home once medically cleared. CM will coordinate RCT transport, private vehicle. He will follow up with his PCP and discharge plan of care. CM will continue to follow. PFSH All Active Problems (Updated 03/14/23 @ 13:43 by Violet Jin MD) Hiatal hernia (Chronic) Small bowel obstruction (Acute) Incarcerated hernia (Acute) Surgical History (Updated 03/14/23 @ 13:38 by Violet Jin MD) History of tooth extraction S/P inguinal hernia repair at 7 years old Social History Smoking/Tobacco Use Status: Never Smoking risk assessment performed?: Yes Alcohol Intake: former Drug use: Never Substance use type: does not use Housing: house Do you feel safe at home: Yes Do you feel safe in your relationship?: Yes
--- NOTE | 2023-03-15 17:24 | CHAPLAIN ---
Lauren was talking with his Pet Sitter when I stopped in. He shared stories about his employment in different places, including [facility], [employer] [employer], the shelter in [place]. He asked about getting a telegram to a friend. I told him I'd check with his client care representative, who had left, to see she had planned to contact Lauren's friend. I left when his nurse arrived to administer a shot to Lauren's stomach.
[2023-03-15] MEDS: Pantoprazole 40 MG VIAL IVP (17:49)
[2023-03-16] MEDS: Lactated Ringers 1,000 ML 80 ML IV (03:11)
[2023-03-16] MEDS: ACETAMINOPHEN 1,000 MG/100 ML BTL 400 MG IVPB ×3 (03:12→17:29)
[2023-03-16 03:30] VITALS: BP 124/79; PULSE 93; RESP 16; TEMP 35.7; O2SAT 94
[2023-03-16 07:22] VITALS: BP 100/63; PULSE 75; RESP 16; TEMP 36.2; O2SAT 98
[2023-03-16 08:17] LABS: Anion Gap 10.5 mmol/L (3-11); BUN 27 mg/dL (7-18); CO2 24.5 mmol/L (21.0-32.0); CREATININE 1.4 mg/dL (0.70-1.30); Calcium 8.9 mg/dL (8.5-10.1); Chloride 115 mmol/L (98-107); Estimated GFR 49.25 (mL/min/1.73m2); Glucose 86 mg/dL (74-106); Sodium 150 mmol/L (136-145)
[2023-03-16 08:20] LABS: Potassium 2.8 mmol/L (3.5-5.1)
[2023-03-16] MEDS: Potassium Chloride Liquid 20 MEQ PKT 40 MEQ PO (09:39)
[2023-03-16 09:46] VITALS: RESP 16; O2SAT 98
[2023-03-16] MEDS: Nystatin POWDER 60 GM JAR TP ×4 (10:00→20:30)
[2023-03-16] MEDS: Diclofenac 1% Gel 100 GM TUBE TP ×2 (10:01→16:17)
--- NOTE | 2023-03-16 12:03 | W.PM.PROGNOT ---
Date of Service Date of service: 03/16/23 Time of Service: 12:03 Assessment and Plan Assessment and plan (1) Incarcerated hernia: Status: Acute Assessment and plan: Lauren is doing quite well after inguinal hernia repair. I will advance his diet this evening. He does have some hypokalemia today, which I have treated with oral potassium. He also has some mild acute kidney injury that I suspect was related to some dehydration around the time of his admission. Clinically, he looks euvolemic today. In that regards, I do not think there is any benefit to continuing intravenous fluids. I will stop those this evening, and reassess the creatinine tomorrow. Subjective Subjective Interval history since last seen: Lauren is sleeping, but easily arousable. He answers questions appropriately. He says he was able to tolerate some liquids today. He is passing gas, with just a little bit of burping. He denies abdominal pain. Exam GI Other: His abdomen is soft and nondistended. He is not tender. His incision is clean, and there are no signs of infection. Objective Last Vital Signs Temp 97.2 F L 03/16/23 07:22 Pulse 75 03/16/23 07:22 Resp 16 03/16/23 09:46 BP 100/63 03/16/23 07:22 Pulse Ox 98 03/16/23 09:46 Laboratory Results - last 24 hr 03/16/23 08:00 Sodium 150 H Potassium 2.8 L* Chloride 115 H Carbon Dioxide 24.5 Anion Gap 10.5 BUN 27 H Creatinine 1.4 H Est GFR (CKD-EPI 2020) 49.25 Glucose 86 Calcium 8.9 Time Spent with Patient Time Spent with Patient: 25-34 minutes Time was spent: preparing to see the patient(eg.review tests), indepentently interpreting results and counseling the patient
[2023-03-16 15:12] VITALS: BP 118/65; PULSE 73; RESP 18; TEMP 36.4; O2SAT 81
[2023-03-16] MEDS: Enoxaparin 40 MG/0.4 ML SYR SC (16:16)
--- NOTE | 2023-03-16 16:51 | CMPROGNOTE_ITS ---
Date of service: 03/16/23 Time of Service: 16:51 Care Management Progress Note Progress Note Text Progress Note Text: S/O: Lauren was sitting up on the edge of his bed when CM met with him. He stated that he is feeling good today, and he was looking forward to his lunch, as it will be his first regular meal. He was pleasant and conversant, and talked a lot about his youth living and working in [place]. Per MD, he continues to be monitored overnight, and may be discharge ready tomorrow, if he continues to improve. CM will continue to follow. A: Laurne is an 87 year old male admitted to [facility] on 03/14/23 for SBO, incarcerated hernia. P: Anticipate Lauren will return home once medically cleared. CM will coordinate RCT transport, private vehicle. He will follow up with his PCP and discharge plan of care. CM will continue to follow.
[2023-03-16] MEDS: Pantoprazole 40 MG VIAL IVP (17:40)
[2023-03-16 20:49] VITALS: BP 120/62; PULSE 72; RESP 18; TEMP 36.6; O2SAT 96
[2023-03-17 03:00] VITALS: BP 122/64; PULSE 76; RESP 18; TEMP 36.3; O2SAT 97
[2023-03-17 06:36] LABS: HCT 31.9 % (40.0-50.0); HGB 10.2 g/dL (13.5-17.5); MCH 28.7 pg (27.0-33.0); MCV 90 fL (80-95); MPV 9.4 fL (8.0-11.0); Platelet Count 235 10^3/uL (130-400); RBC 3.55 10^6/uL (4.36-5.78); RDW-SD 45.8 fL; WBC 6.16 10^3/uL (4.4-10.8)
[2023-03-17 06:56] LABS: Anion Gap 12.1 mmol/L (3-11); BUN 23 mg/dL (7-18); CO2 21.9 mmol/L (21.0-32.0); CREATININE 1.2 mg/dL (0.70-1.30); Calcium 8.5 mg/dL (8.5-10.1); Chloride 113 mmol/L (98-107); Estimated GFR 59.26 (mL/min/1.73m2); Glucose 102 mg/dL (74-106); Sodium 147 mmol/L (136-145)
[2023-03-17 06:59] LABS: Potassium 2.7 mmol/L (3.5-5.1)
[2023-03-17] MEDS: Bisacodyl 10 MG SUPP PR (07:48)
[2023-03-17] MEDS: Polyethylene Glycol 3350 17 GM PACKET PO (07:48)
[2023-03-17 07:53] VITALS: BP 140/84; PULSE 74; RESP 16; TEMP 36.8; O2SAT 97
[2023-03-17] MEDS: Potassium Chloride 20 MEQ TABCR 40 MEQ PO ×2 (08:26→20:52)
[2023-03-17] MEDS: Nystatin POWDER 60 GM JAR TP ×3 (08:26→20:52)
--- NOTE | 2023-03-17 10:05 | PDOC.CMPRO ---
Date of service: 03/17/23 Time of Service: 10:05 Care Management Progress Note Progress Note Text Progress Note Text: S/O: Lauren was sitting up in his chair when CM met with him. He stated that he continues to feel better each day. He worked with PT today; CM witnessed him walking with a FWW in the bosch, stand by assist. He expressed some anxiety about getting home, but stated that once he is home, he knows that he will be able to manage ok. He has a supportive neighbor who helps him out when needed. He reported to PT that he may need the chief deputy sheriff to open his house for him, as he does not have his keys; CM advised that he will have to make the call to the chief deputy sheriff. CM will coordinate RCT private vehicle when he is ready for discharge. CM set up a follow up appointment at [facility] for 03/21/23 at 08:30. Dr. Pierre stated that she will follow Lauren's HH orders until he is established with his new PCP. He will benefit from new HH RN and PT, which will be ordered upon discharge. CM will continue to follow. A: Lauren is an 87 year old male admitted to [facility] on 03/14/23 for SBO, incarcerated hernia. P: Anticipate Lauren will return home once medically cleared. CM will coordinate RCT transport, private vehicle. He will follow up with his PCP and discharge plan of care. CM will continue to follow.
--- NOTE | 2023-03-17 10:59 | PGE_ITS ---
Date of Service Date of service: 03/17/23 Time of Service: 10:59 Assessment and Plan Assessment and plan (1) Incarcerated hernia: Status: Acute Assessment and plan: POD #3 s/p incarcerated right inguinal hernia repair continue regular diet (+) BM today pain well controlled Strongly encouraged him to get OOB, sit in the chair and ambulate to anticipate d/c home. PO Potassium was ordered to replenish Increase activity out of bed. Tolerating regular diet. Hopefully d/c home in the next day or two. Patient seen and examined at 3 pm Patient has been up with PT. He uses a walker. They have recommended outpatient home PT Patient is otherwise doing well. Pain is controlled and he is eating He has had a BM Because he lives alone I will plan on discharge tomorrow morning We will plan on sending him Home with groceries for the weekend We will set him up with meals on wheels I will order PT/OT for home He will follow up with me in 10 days Subjective Subjective Interval history since last seen: Arrived with Lauren sleeping soundly. He states that he has not been able to sleep at night, so he has been sleeping most of today. He denies having any abd ominal pain, nausea or vomiting. He describes having a BM this morning. Exam Const General: cooperative, healthy appearing and comfortable Orientation: alert and oriented x3 Resp Effort & Inspection: normal respiratory effort, no audible wheezes and no cough GI Inspection: normal to inspection and non-distended Palpation: soft, no guarding and nontender Other: Incision site is well approximated. Skin a fix in place. Ecchymosis around the incision site that extends laterally and posteriorly. Objective Last Vital Signs Temp 36.8 C 03/17/23 07:53 Pulse 74 03/17/23 07:53 Resp 16 03/17/23 07:53 BP 140/84 03/17/23 07:53 Pulse Ox 97 03/17/23 07:53 Laboratory Results - last 24 hr 03/17/23 05:53 WBC 6.16 RBC 3.55 L Hgb 10.2 L D Hct 31.9 L MCV 90 MCH 28.7 MCHC 32.0 RDW 14.0 Plt Count 235 MPV 9.4 Sodium 147 H Potassium 2.7 L* Chloride 113 H Carbon Dioxide 21.9 Anion Gap 12.1 H BUN 23 H Creatinine 1.2 Est GFR (CKD-EPI 2020) 59.26 Glucose 102 Calcium 8.5 Time Spent with Patient Time Spent with Patient: 25-34 minutes Time was spent: counseling the patient and care coordination
--- NOTE | 2023-03-17 14:46 | PT.INIE ---
Date of service: 03/17/23 Time of Service: 14:46 PT Notes Visit Reasons: Small Bowel Obstruction, Incarcerated Hernia Physical Therapy Inpatient Initial Evaluation Date: 03/17/2023 Referring Doctor: Miguel Moore MD PT Orders: PT CONSULT: Limited ability Precautions: Fall. Standard. Activity as tolerated. Patient Profile/Admitting Diagnosis: Patient S/P repair of incarcerated R inguinal hernia on postoperative day 3. PMHX: All Active Problems (Updated 03/14/23 @ 13:43 by Violet Jin MD) Hiatal hernia (Chronic) Small bowel obstruction (Acute) Incarcerated hernia (Acute) Surgical History (Updated 03/14/23 @ 13:38 by Violet Jin MD) History of tooth extraction S/P inguinal hernia repair at 7 years old Social History/Home Situation: Lives alone. Neighbors and friends very supportive. Home is small and is arranged to allow for the most efficiency of his day to day activities. He only has a half step getting into the entrance door where he has grab bars on B sides that he could hold onto. He still drives. Equipment Owned/DME: 4WW, SPC Subjective: States that the way he has arranged his apartment has allowed for the most efficiency for him. Proud about still being able to drive. No mention of pain nor discomfort throughout. Agreeable with HH PT for home safety evaluation and continued mobility progression. Objective: General Observation: Seated on bedside recliner. No lines. Mental Status: Alert and oriented as to person, place, time, and purpose. Able to pay attention, focus, and respond appropriately. Pain: None reported Vital Signs: Closely monitored by nursing staff ROM: Right Upper Extremity: Shoulder Flexion WFL. Shoulder abduction WFL. Elbow flexion WFL. Wrist flexion WFL. Functional opening and closing of hand WFL. Left Upper Extremity: Shoulder Flexion WFL. Shoulder abduction WFL. Elbow flexion WFL. Wrist flexion WFL. Functional opening and closing of hand WFL. Right Lower Extremity: Hip flexion WFL. Hip abduction WFL. Knee flexion WFL. Ankle dorsiflexion WFL. Ankle plantarflexion WFL. Left Lower Extremity: Hip flexion WFL. Hip abduction WFL. Knee flexion WFL. Ankle dorsiflexion WFL. Ankle plantarflexion WFL. Strength: Right Upper Extremity: Shoulder flexors 4/5. Shoulder abductors 4/5. Elbow flexors 4/5. Elbow extensors 4/5. Pediatric Neuropsychologist strong. Left Upper Extremity: Shoulder flexors 4/5. Shoulder abductors 4/5. Elbow flexors 4/5. Elbow extensors 4/5. Pediatric Neuropsychologist strong. Right Lower Extremity: Hip flexors 4-/5. Hip abductors 4-/5. Knee flexors 4/5. Knee extensors 4/5. Ankle dorsiflexors 4-/5. Ankle plantarflexors 4-/5. Left Lower Extremity: Hip flexors 4-/5. Hip abductors 4-/5. Knee flexors 4/5. Knee extensors 4/5. Ankle dorsiflexors 4-/5. Ankle plantarflexors 4-/5. Bed Mobility/Transfers: Sit to stand supervision using B hands for support without need for cues, uses FWW Stand to sit supervision using B hands for support without need for cues, uses FWW Bed to reclining chair supervision using B hands for support without need for cues, uses FWW Reclining chair to bed supervision using B hands for support without need for cues, uses FWW Gait: Instructed patient with level surface ambulation of 100 feet requiring stand by assist. Chronic thoracic kyphosis and decreased IVANA apparent. Understands the importance of using ambulatoy device for safety. Balance: Static Sitting: Normal Dynamic Sitting: Normal Static Standing: Fair Dynamic Standing: Fair Special Tests: Mobility Limitations Standardized Measure [facility] AM-PAC 6 clicks Basic Mobility Inpatient Short Form: Raw Score: 24 CMS Score: 0% deficit Informed Consent/Education: Patient was instructed in purpose of PT consult and plan of care. Agreeable to proceed with established PT POC to achieve personal goals. Assessment: Will require use of FWW for all mobility ADL performance to maximize independence and reduce fall risk at home. Patient presents with clinical signs and symptoms consistent with current/admitting diagnoses that have resulted to mobility limitations, gait instability, generalized weakness, and overall ADL decline as demonstrated by the following impairment level findings: 1. Impaired sitting/standing balance 2. Impaired activity tolerance Impairments are contributing to the following functional limitations: 1. Difficulty with ambulation without assistive device 2. Increased completion time for mobility ADL performance Patient is assessed as a 45503 moderate complexity based on the following: History: 87-year-old male with past medical history as indicated above Examination: Demonstrable impairment in strength, balance, and mobility level with underlying impairments and functional limitations as exhibited above as well as deficit score of 0% utilizing the [facility] Mobility Inpatient Short Form Presentation: Stable Decision Makin moderate complexity Goals: Goals X1 week 1. Supine-Sit independent 2. Sit-Supine independent 3. Sit-Stand independent 4. Stand-Sit independent with 4WW 5. Bed-Chair independent with 4WW 6. Chair-Bed independent with 4WW 7. Independent gait on level surface with use of 4WW for at least 150 feet without report of pain nor dyspnea 8. Independent stair negotiation while holding onto B rails for at least 1 step without report of pain nor dyspnea 9. Good static and dynamic standing balance/tolerance Plan of Care/Treatment Plan: 1-2x/day, 7 days/week x 1 week. Plan of care has been reviewed with the STUFFED CASING TIER providing the service under Physical Therapy direction. Initiate Physical Therapy intervention for pain management as needed, strengthening, bed mobility, transfers, gait, stairs, balance training, and use of assistive device. DISCHARGE RECOMMENDATIONS: [] Home with no services [] [X] Home with services. Patient will benefit from HH PT services in order to progress mobility level using least restrictive assistive ambulatory device, assess home safety, identify additional equipment needs, and establish a functional maintenance program that will increase ability of patient to remain at home. [] Home with outpatient PT [] [] SNF for continued rehabilitation [] [] Personal Computer Specialist Care [] [] SNF versus LTC based on ability to participate and progress [] TREATMENT CODE/TIME: 02888 x 20 minutes for 1 unit, 58089 x 13 minutes for 1 unit beginning at 14:46 PM Thank you for the opportunity to participate in the care of this patient. Mikaela Joe PT, DPT, CLT [facility] [place], [place]
[2023-03-17 15:08] VITALS: BP 120/74; PULSE 88; RESP 18; TEMP 35.1; O2SAT 98
[2023-03-17] MEDS: Pantoprazole 40 MG VIAL IVP (18:01)
[2023-03-17] MEDS: Enoxaparin 40 MG/0.4 ML SYR SC (18:01)
[2023-03-17] MEDS: Normal Saline Flush 10 ML SYR IVP (18:01)
[2023-03-17 23:22] VITALS: BP 126/73; PULSE 67; RESP 16; TEMP 37.3; O2SAT 93
[2023-03-18 07:31] VITALS: BP 107/61; PULSE 71; RESP 19; TEMP 36.5; O2SAT 96
[2023-03-18] MEDS: Potassium Chloride 20 MEQ TABCR 40 MEQ PO ×2 (08:58→17:02)
[2023-03-18] MEDS: Nystatin POWDER 60 GM JAR TP (08:58)
[2023-03-18] MEDS: Polyethylene Glycol 3350 17 GM PACKET PO (08:58)
--- NOTE | 2023-03-18 10:53 | W.PM.PROGNOT ---
Date of Service Date of service: 03/18/23 Time of Service: 10:53 Assessment and Plan Assessment and plan (1) S/P inguinal hernia repair using synthetic patch: Assessment and plan: POD #4 s/p repair of incarcerated right inguinal hernia with obstruction. He is doing well. He is passing flatus, having BM, and is eating. Wound looks good and he has been afebrile Hiatal Hernia- a chronic issue. NO dysphagia Arthritis of multiple joints- using voltaren which helps. Will send a Rx in to his pharmacy of choice PT evaluation done- they feel he could benefit from Home PT/OT. Will set up upon discharge Social- patient lives alone. Concerns about him being able to get groceries. Will send patient home with some groceries from our kitchen. Will set up Meals on wheels for patient He does have a neighbor/friend who will look in on him. (2) Hiatal hernia: Status: Chronic (3) Small bowel obstruction: Status: Acute (4) Incarcerated hernia: Status: Acute (5) Arthritis: Status: Acute (6) Discharge planning issues: Status: Acute Subjective Subjective Interval history since last seen: Lauren is doing well. He had a good night. He is having BMs, passing flatus and has been afebrile. Exam Const General: cooperative, comfortable and no acute distress Nutritional Appearance: thin Orientation: alert and oriented x3 HENMT Head: normocephalic and atraumatic Resp Effort & Inspection: normal respiratory effort Auscultation: clear to auscultation bilaterally Cardio Rate: regular rate Rhythm: regular rhythm GI Inspection: incision (c/d/i) Palpation: soft, no hepatosplenomegaly and nontender Objective Last Vital Signs Temp 97.7 F 03/18/23 07:31 Pulse 71 03/18/23 07:31 Resp 19 03/18/23 07:31 BP 107/61 03/18/23 07:31 Pulse Ox 96 03/18/23 07:31 Time Spent with Patient Time Spent with Patient: <25 minutes Time was spent: preparing to see the patient(eg.review tests), obtaining and/or reviewing separately otained hiistory, indepentently interpreting results, counseling the patient and care coordination
--- NOTE | 2023-03-18 12:00 | PT.INNT ---
Date of service: 03/18/23 Time of Service: 11:46 PT Notes Visit Reasons: Small Bowel Obstruction, Incarcerated Hernia Patient refused, states he is going home today and therefore does not need therapy today.
--- NOTE | 2023-03-18 12:26 | W.PM.DS.N ---
Date of service: 03/18/23 Time of Service: 12:27 DS: Diagnosis Discharge Diagnosis (1) S/P inguinal hernia repair using synthetic patch: (2) Hiatal hernia: Status: Chronic (3) Small bowel obstruction: Status: Acute (4) Incarcerated hernia: Status: Acute (5) Arthritis: Status: Acute (6) Discharge planning issues: Status: Acute Discharge Plan Disposition Patient Disposition: Home W/Home Health Services Condition: Stable Discharge Details Reason For Visit: Small Bowel Obstruction, Incarcerated Hernia Admit Date/Time: 03/14/23 12:44 Admit Provider: Violet Jin Attending Provider: Violet Jin Primary Care Provider: Unknown,Unknown Hospital Course Hospital Course: Lauren is a 87 year old male who was admitted after going to the OR emergently for SBO secondary to an incarcerated recurrent right inguinal hernia. He did well postoperatively. He also was diagnosed with a large HIatal HErnia with ? torsion. An NG tube was placed for decompression. NG tube was removed on POD #1. Patient was started on clear liquids on POD #2. POD #3 he was passing flatus and tolerating a diet. He had not had a BM for 1 week. He was give a suppository and he had several BMs after that. He did have hypokalemia which got replaced. I did ask our hospitalist for an opinion on the hypokalemia. They felt it was probably due to overhydration. Socailly patient lives alone. He was worried about how he would get food prior to discharge. Care management was able to get food for him for the weekend. Meals on wheels were arranged for him as well. PT was consulted while he was in house. They recommended Home PT/OT. This was arranged. Patient has not taken any pain medications and denies pain other then that of his left knee secondary to arthritis. Patient also doesnt have a PCP. Referal was sent to [facility] for a PCP for patient He will follow up in our office next monday. Home Meds and New Rx's Prescriptions: New diclofenac sodium 3 % Gel 1 applic topical TID PRN PRN (Reason: leg pain) Qty: 100 3RF Discharge Instructions Instructions: Care For Your Absorbable Stitches (DC) Additional Instructions: Activity at Home after surgery: 1. Make sure you walk a few times a day 2. You should be able to climb a flight of stairs 3. No driving while in pain or taking pain medications 4. No strenuous activity or heavy lifting for 4 weeks (open surgery) Diet, Nutrition, & wound healin. Regular diet Pain Medications: 1. Tylenol 650mg every 6 hours as needed and Ibuprofen 600 mg every 6 hours as needed. You may alternate between the 2 medications every 3 hours For Constipation: 1. Take Milk of Magnesia or MiraLax as needed for constipation Other: 1. You may shower daily. Do not scrub the incisions 2. Do not soak the incisions for 1 week 3. You may alternate ice and heat as needed for pain and swelling Wound Care: 1. Keep the incisions clean and dry Other Services that may have been ordered: HOme Physical Therapy and Occupational Therapy Please call our office if you develop: 1. Fevers >101.5 2. Nausea or Vomiting 3. Worsening pain 4. Redness and thick discharge from the wounds If after hours please call the Hospital at and ask to speak to the on-call surgeon Stand Alone Forms: Nursing Discharge Form Referrals: Rachid Bernard DO [ [facility] STAFF PHYSICIAN] - 03/21/23 8:30 am Violet Jin MD [ [facility] STAFF PHYSICIAN] - 03/24/23 10:30 am Activity:: as above Equipment/Supplies:: No Equipment Needed Diet:: As Tolerated Discharge Orders Discharge Orders: Discharge Order (Routine); Ordered 03/18/23 Ordered By: Violet Jin DS: Summary Time Spent with Patient providing and/or coordinating discharge services: Greater than 30 minutes Status at Discharge Functional status at discharge: independent ambulation Overall status at discharge: patient is back to baseline Mental Status: mental status grossly normal Speech and Movement: speech and movement normal Mood: congruent mood Affect: normal affect Exam Psych Mental Status: mental status grossly normal Speech and Movement: speech and movement normal Mood: congruent mood Affect: normal affect DS: Data Vitals/I&O Vitals and I&O: Vital Signs Temperature 97.7 F 03/18/23 07:31 Temperature Source Tympanic 03/18/23 07:31 Pulse 71 03/18/23 07:31 Pulse Rhythm Regular 03/17/23 23:21 Pulse 88 03/14/23 13:50 Respiratory Rate 19 03/18/23 07:31 Respiratory Effort Normal, Non-Labored 03/17/23 23:21 Respiratory Depth Normal 03/17/23 23:21 Respiratory Pattern Normal 03/17/23 23:21 Blood Pressure 107/61 03/18/23 07:31 Blood Pressure Mean 91 03/14/23 13:46 Blood Pressure Position Supine 03/14/23 09:31 Pulse Oximetry 96 03/18/23 07:31 Respiratory End-tidal CO2 26 03/14/23 16:30 Oxygen Delivery Method Room Air 03/18/23 07:31 Oxygen Flow Rate 0 03/18/23 07:31 Pain Level 0 03/18/23 07:31 Intake & Output 03/17/23 03/18/23 03/18/23 23:59 11:59 23:59 Output Total 850 / 850 Balance -850 / -850 Output: Urine 850 / 850 Other: Urine Color Yellow Light Shanda Urine Appearance Clear Clear Urine Odor None Comment urine was mixed with BM Stool Size Moderate Stool Characteristics Formed Voiding Methods Bedside Commode Urinal PFSH All Active Problems Discharge planning issues (Acute) Arthritis (Acute) multiple joints Hiatal hernia (Chronic) Small bowel obstruction (Acute) Incarcerated hernia (Acute) recurrent Surgical History S/P inguinal hernia repair using synthetic patch (~03/14/23) History of tooth extraction S/P inguinal hernia repair at 7 years old Social History Smoking/Tobacco Use Status: Never Smoking risk assessment performed?: Yes Alcohol Intake: former Drug use: Never Substance use type: does not use Housing: house Do you feel safe at home: Yes Do you feel safe in your relationship?: Yes Time Spent with Patient Time Spent with Patient: 45-69 minutes Time was spent: counseling the patient and care coordination
--- NOTE | 2023-03-18 13:05 | PDOC.HHF2F ---
Home Health Referral Home Health Orders Clinical synopsis of why skilled professionals are needed: Patient nbeeds PT for strengthening Severe arthritis fall risk Medical diagnosis necessitation home health referral: 87 year old male with severe arthritis and s/p incarcerated right inguinal hernia repair Physical Therapist: Check all that apply Increase strength & endurance for safe mobility at home: Ordered Fall reduction therapy program for patient with history of frequent falls: Ordered Home safety evaluation and teaching/gait training including stair management (if applicable): Ordered Occupational Therapist: Evaluate and treat for patient unable to perform ADL/IADL/self-care: Ordered Home Bound Status Assistance of another person (Describe assistance and medical necessity): patient has a truck. unable to drive after surgery. HAs no family to assist with transportation Encounter Date and Reason: I certify that a FTF encounter for this patient was performed on March 18, 2023 and that such encounter was related to the primary reason the patient requires home health services. The encounter was conducted in the following manner: By me as the certifying physician, INTELLECTUAL PROPERTY LEGAL ASSISTANT, PA or By an inpatient physician, INTELLECTUAL PROPERTY LEGAL ASSISTANT or PA during an inpatient stay who communicated findings to me, Certification And Authentication I certify that I composed the above information based on my clinical judgment relating to this patient's medical condition and, if applicable, clinical findings communicated to me by the NPP or inpatient physician who performed the FTF encounter. Name of Provider that will be monitoring home health services: Violet Jin
--- NOTE | 2023-03-18 13:08 | CMDISCH_ITS ---
Date of service: 03/18/23 Time of Service: 13:08 LACE Index Scoring Tool Questions: Length of Stay (in days): 4 - 6 Was the patient admitted via the E.D.?: Yes E.D. Visits: 0 Answers: Total Score: 7 Risk of Readmission: Low Risk Care Management Discharge Plan Reason for Hospitalization: Small Bowel Obstruction, incarcerated hernia Discharge Plan: Lauren will return home when ready per MD, with a bag of food for the weekend. COA referral completed for options counseling and MOW. CM set up a follow up appointment at [facility] for 03/21/23 at 08:30. Dr. Pierre stated that she will follow Lauren's HH orders until he is established with his new PCP. He will benefit from new HH RN and PT, which will be ordered upon discharge. FANNY spoke with Lauren's friend, [place] Lr who will transport Lauren home via private vehicle this evening. Patient/Family Education Needs: Review discharge instructions, discuss Ask Me Three Services Needed at Discharge: Home Delivered Meals, Occupational Therapy and Physical Therapy
[2023-03-18] MEDS: Enoxaparin 40 MG/0.4 ML SYR SC (17:01)
== END 2023-03-18 17:39 | disposition home health service (06) | DRG 351 ==
LOC: ER 14:04 → SUR 14:11 → MS 18:05 → ER 03-15 08:51 → MS 03-15 08:56 → SUR 03-15 08:56
PROVIDERS: Student in an Organized Health Care Education/Training Program; Surgery; Admitting Provider Surgery; Emergency Provider Physician Assistant; Visit Provider Surgery
PROC: 0YU50JZ Supplement Right Inguinal Region with Synthetic Substitute, Open Approach (ICD-10-PCS; CPT 49507; principal; 2023-03-14 13:45)
DX: K40.30 Unilateral inguinal hernia, with obstruction, without gangrene, not specified as recurrent; N17.9 Acute kidney failure, unspecified; K44.9 Diaphragmatic hernia without obstruction or gangrene; E87.6 Hypokalemia; E86.0 Dehydration; M15.9 Polyosteoarthritis, unspecified
CPT/HCPCS: 49507; 00123; 36415; 76705; 80048; 80053; 83690; 85027; 86850; 86900; 86901; 87635; 93005; 96361; 96374; 97162; 97530; 99223; 99285; J1650; 71045; 74018; 74177; 83605; 83735; 85025; 93010; C1781; J0131; J0295; J1100; J2001; J2405; J2704; J3010; J3480; J3490